=== PATIENT | female | born 1945 | race American Indian/Alaskan Native ===

== ENCOUNTER 2016-07-29 15:18 | Emergency (ER) | payer MEDICARE ==
[2016-07-29] MEDS ORDERED: TETRACAINE 0.5% OD STA (16:00)
[2016-07-29] MEDS ORDERED: ZOFRAN ODT PO ONE (16:00)
[2016-07-29] MEDS ORDERED: FUL-GLO OP ONE ×2 (16:00→20:57)
[2016-07-29] MEDS ORDERED: NORCO 5/325 PO ONE ×2 (16:00→20:33)
--- NOTE | 2016-07-29 16:03 | Emergency Department Report ---
Chief Complaint: Headache Stated Complaint: SHINGLES Time Seen by Provider: 07/29/16 16:00 - HPI History of Present Illness: PT c/o headache since Monday. PT dx with shingles this week at . PT went back today due to lack of improvement. PT sent to ED for further eval - ROS Review of Systems: + bliss + rash + eye pain - Exam Vital Signs: Vital Signs 07/29/16 15:45 Temperature 98.9 F Pulse Rate 88 Respiratory 22 Rate Blood Pressure 108/71 O2 Sat by Pulse 100 Oximetry Physical Exam: pt is alert and appropriate rash to R face R upper eye lid edematous and swollen MSE screening note: Focused history and physical exam performed. Due to findings the following was ordered: meds ED Disposition for MSE Condition: Stable
[2016-07-29 20:09] VITALS: BP 97/68
--- NOTE | 2016-07-29 20:51 | Emergency Department Report ---
HPI - General Chief Complaint: Headache Time Seen by Provider: 07/29/16 16:00 - HPI HPI: This is a 71-year-old Afro[place] female presents to the emergency department with complaint of a shingles rash to the right side of the scalp, head and face. She also has had some swelling and redness to the right eye with some right eye pain. She went to an urgent care on Monday and was placed on Valtrex 1 g twice a day 5 days, which she has been taking compliantly. She went back to the urgent care today because of the swelling and redness and lack of pain management and was referred to the emergency department for further evaluation. Patient has history of arthritis, remote breast cancer, hypertension. She does not have a primary care doctor. No recent travel or sick contacts at home. She has not taken anything else for her symptoms prior to presentation. ED Past Medical Hx - Past Medical History Hx Hypertension: Yes Hx of Cancer: Yes (breast x 2) Hx Arthritis: Yes - Surgical History Hx Breast Surgery: Yes (2013) Additional Surgical History: BILATERAL KNEE REPLACEMENT. HYSTERECTOMY - Social History Smoking Status: Never Smoker Substance Use Type: None - Medications Home Medications: Home Medications Medication Instructions Recorded Confirmed Last Taken Type HYDROcodone/APAP 5-325 [Spray 1 each PO Q6HR PRN #16 tablet 07/29/16 Unknown Rx 5/325] Ondansetron [Zofran Odt] 4 mg PO Q8HR PRN #10 tab.rapdis 07/29/16 Unknown Rx ED Review of Systems ROS: Stated complaint: SHINGLES Other details as noted in HPI Comment: All other systems reviewed and negative Constitutional: denies: chills, fever Eyes: eye pain. denies: eye discharge ENT: denies: ear pain, throat pain Respiratory: denies: cough, shortness of breath, wheezing Cardiovascular: denies: chest pain, palpitations Gastrointestinal: denies: abdominal pain, nausea, diarrhea Genitourinary: denies: urgency, dysuria, discharge Musculoskeletal: denies: back pain, joint swelling, arthralgia Skin: rash, lesions, pruritus Neurological: denies: weakness, numbness Physical Exam - Physical Exam Vital Signs: Vital Signs 07/29/16 07/29/16 07/29/16 15:45 16:08 20:08 Temperature 98.9 F Pulse Rate 88 75 Respiratory 22 18 16 Rate Blood Pressure 108/71 Blood Pressure 97/68 [Left] O2 Sat by Pulse 100 100 Oximetry Physical Exam: GENERAL: The patient is well-developed well-nourished. HEENT: Normocephalic. Atraumatic. Extraocular motions are intact and there is no pain with extraocular motion. Patient has moist mucous membranes. Pupils equal reactive to light bilaterally. There is no fluorescein uptake to the cornea. NECK: Supple. Trachea is midline. CHEST/LUNGS: Clear to auscultation. There is no respiratory distress noted. HEART/CARDIOVASCULAR: Regular. There is no tachycardia. There is no gallop rub or murmur. ABDOMEN: Abdomen is soft, nontender. Patient has normal bowel sounds. There is no abdominal distention. SKIN: Patient has a vesicular rash to the right side of the scalp and forehead as well as a small patch to the right cheek that appears consistent with herpes zoster. The patient has some mild swelling of the right upper and lower eyelids as well. NEURO: The patient is awake, alert, and oriented. The patient is cooperative. The patient has no focal neurologic deficits. The patient has normal speech. Cranial nerves II through XII grossly intact. MUSCULOSKELETAL: There is no tenderness or deformity. There is no limitation range of motion. There is no evidence of acute injury. ED Course Vital Signs 07/29/16 07/29/16 07/29/16 15:45 16:08 20:08 Temperature 98.9 F Pulse Rate 88 75 Respiratory 22 18 16 Rate Blood Pressure 108/71 Blood Pressure 97/68 [Left] O2 Sat by Pulse 100 100 Oximetry ED Medical Decision Making - Lab Data Result diagrams: 07/29/16 20:54 07/29/16 20:54 - Medical Decision Making This is a 71-year-old female presents the emergency department with newly diagnosed shingles and pain to the right side of the face and swelling around the right eye, consistent with sequela of the shingles. Vital signs have been stable throughout her ED course occluding being afebrile. The patient has trouble opening the eyes secondary to the swelling of the eyelid but when it is open she denies any vision change. She denies any pain to the eye itself. She had tetracaine and fluorescein staining and there was no uptake to the cornea showing any hyphae or pseudohyphae. Otherwise it does not appear to be any overlying secondary bacterial infections. There is no fever. She has no leukocytosis. The patient was able to tolerate Spray for pain. She will be given some pain medication and will continue to take her Valtrex as previously prescribed. She'll be given referrals for primary care and ophthalmology. She knows to return to the emergency department with any worsening of her symptoms or any acute distress. - Differential Diagnosis Shingles, cellulitis, conjunctivitis, dermatitis Critical Care Time: No Critical care attestation.: If time is entered above; I have spent that time in minutes in the direct care of this critically ill patient, excluding procedure time. ED Disposition Clinical Impression: Shingles rash Qualifiers: Herpes zoster complications: unspecified herpes zoster complication Qualified Code(s): B02.8 - Zoster with other complications Disposition: DISCHARGED TO HOME OR SELFCARE Is pt being admited?: No Condition: Stable Instructions: Herpes Zoster (ED) Additional Instructions: Please follow-up with a primary care doctor in the next few days. I have also given you a referral for a local assembly repairer, Dr. Morris, to follow up regarding her right eye. Return to the emergency department with any worsening of her symptoms or any acute distress. You've been prescribed a medication that is sedating. Therefore this medication cannot be mixed with alcohol, or taken prior to driving, working, or being responsible for children. Prescriptions: HYDROcodone/APAP 5-325 [Spray 5/325] 1 each PO Q6HR PRN #16 tablet PRN Reason: Pain Ondansetron [Zofran Odt] 4 mg PO Q8HR PRN #10 tab.rapdis PRN Reason: Nausea Referrals: PRIMARY ANGEL, [Primary Care Provider] - 3-5 Days PRICILLA MORRIS MD [Staff Physician] - 3-5 Days LINETTE GIBBS MD [Staff Physician] - 3-5 Days SHRUTHI LINARES MD [Staff Physician] - 3-5 Days [facility] [Outside] - 3-5 Days Time of Disposition: 21:30
[2016-07-29 21:11] LABS: Hematocrit 37.1 % (30.3-42.9); Hemoglobin 12.5 gm/dl (10.1-14.3); Mean Corpuscular HGB Conc 34 % (30-34); Mean Corpuscular Hemoglobin 30 pg (28-32); Mean Corpuscular Volume 90 fl (79-97); Platelet Count 197 K/mm3 (140-440); Red Blood Count 4.14 M/mm3 (3.65-5.03); Red Cell Distribution Width 14.9 % (13.2-15.2); White Blood Count 7.4 K/mm3 (4.5-11.0)
[2016-07-29 21:27] LABS: Blood Urea Nitrogen 17 mg/dL (7-17); Calcium 9.8 mg/dL (8.4-10.2); Carbon Dioxide 21 mmol/L (22-30); Glucose 101 mg/dL (65-100); Sodium 131 mmol/L (137-145)
[2016-07-29 21:28] LABS: Anion Gap 21 mmol/L; Chloride 93.6 mmol/L (98-107); Potassium 4.4 mmol/L (3.6-5.0)
[2016-07-29 22:24] LABS: Basophils % (Manual) 0 % (0.0-1.8); Blastocytes % (Manual) 0 %; Diff Status Complete; Platelet Estimate Consistent w Auto; RBC Morphology Normal
== END 2016-07-29 21:35 | disposition home or self-care (01) ==
LOC: ED 15:18
DX: B02.8 Zoster with other complications (principal); I10 Essential (primary) hypertension; C50.919 Malignant neoplasm of unspecified site of unspecified female breast; M19.90 Unspecified osteoarthritis, unspecified site; Z90.710 Acquired absence of both cervix and uterus; Z89.512 Acquired absence of left leg below knee; Z89.511 Acquired absence of right leg below knee; Z88.8 Allergy status to other drugs, medicaments and biological substances
CPT/HCPCS: 36415; 80048; 85007; 85025; Q0162

== ENCOUNTER 2021-01-15 09:09 | Emergency (ER) | payer MEDICARE ==
[2021-01-15] MEDS ORDERED: KETOROLAC 60 MG/2 ML INJ IM ONE (10:17)
--- NOTE | 2021-01-15 10:31 | Emergency Department Report ---
ED Female HPI - General Chief complaint: Urogenital-Female Stated complaint: STOMACH/BACK PAIN Time Seen by Provider: 01/15/21 10:14 Source: patient Mode of arrival: Ambulatory Limitations: No Limitations - History of Present Illness Initial comments: 75-year-old female with a past medical history of arthritis, hypertension, and hysterectomy presents to the hospital complaints of left lower quadrant pain radiating to the back worsening x1 week. Pain is constant, severe and currently rated 10/10 intensity. Pain is worse with palpation, movement, ambulation, and urination. Patient complains of dysuria with frequency. Patient denies hematuria, nausea, vomiting, history of kidney stones, or fever. - Related Data Previous Rx's Medication Instructions Recorded Last Taken Type HYDROcodone/APAP 5-325 [H[place] 1 each PO Q6HR PRN #16 tablet 07/29/16 Unknown Rx 5/325] Ondansetron [Zofran Odt] 4 mg PO Q8HR PRN #10 tab.rapdis 07/29/16 Unknown Rx HYDROcodone/APAP 5-325 [[place] 1 each PO Q6HR PRN #15 tablet 01/15/21 Unknown Rx 5/325] Ibuprofen [Motrin] 600 mg PO Q8H PRN #14 tablet 01/15/21 Unknown Rx Nitrofurantoin Edwards/M-Cryst 100 mg PO Q12HR #10 capsule 01/15/21 Unknown Rx [Macrobid CAP] Allergies Allergy/AdvReac Type Severity Reaction Status Date / Time oxycodone AdvReac Vomiting Verified 07/29/16 15:49 tramadol AdvReac Vomiting Verified 07/29/16 15:49 ED Review of Systems ROS: Stated complaint: STOMACH/BACK PAIN Other details as noted in HPI Comment: All other systems reviewed and negative ED Past Medical Hx - Past Medical History Hx Hypertension: Yes Hx Arthritis: Yes - Surgical History Hx Breast Surgery: Yes (2013) Additional Surgical History: BILATERAL KNEE REPLACEMENT. HYSTERECTOMY - Social History Smoking Status: Never Smoker Substance Use Type: None - Medications Home Medications: Home Medications Medication Instructions Recorded Confirmed Last Taken Type HYDROcodone/APAP 5-325 [[place] 1 each PO Q6HR PRN #16 tablet 07/29/16 Unknown Rx 5/325] Ondansetron [Zofran Odt] 4 mg PO Q8HR PRN #10 tab.rapdis 07/29/16 Unknown Rx HYDROcodone/APAP 5-325 [[place] 1 each PO Q6HR PRN #15 tablet 01/15/21 Unknown Rx 5/325] Ibuprofen [Motrin] 600 mg PO Q8H PRN #14 tablet 01/15/21 Unknown Rx Nitrofurantoin Edwards/M-Cryst 100 mg PO Q12HR #10 capsule 01/15/21 Unknown Rx [Macrobid CAP] ED Physical Exam - General Limitations: No Limitations - Other Other exam information: General: No acute distress Head: Atraumatic Eyes: normal appearance ENT: Moist mucous membranes Neck: Normal appearance, no midline tenderness Chest: Clear to auscultation bilaterally CV: Regular rate and rhythm Abdomen: Soft, normal bowel sounds, left lower quadrant tenderness, nondistended, no rebound or guarding Back: Normal inspection, left flank and lower back tenderness to palpation Extremity: Normal inspection, full range of motion Neuro: Alert O x 3, no facial asymmetry, speech clear, no gross motor sensory deficit Psych: Appropriate behavior Skin: No rash ED Course Vital Signs 01/15/21 09:16 Temperature 98.4 F Pulse Rate 83 Respiratory 16 Rate Blood Pressure 140/73 [Left] O2 Sat by Pulse 96 Oximetry ED Medical Decision Making - Lab Data Result diagrams: 01/15/21 10:10 01/15/21 10:10 Lab Results 01/15/21 01/15/21 01/15/21 Range/Units 10:10 10:10 Unknown WBC 4.1 L (4.5-11.0) K/mm3 RBC 4.08 (3.65-5.03) M/mm3 Hgb 13.1 (10.1-14.3) gm/dl Hct 38.3 (30.3-42.9) % MCV 94 (79-97) fl MCH 32 (28-32) pg MCHC 34 (30-34) % RDW 14.3 (13.2-15.2) % Plt Count 214 (140-440) K/mm3 Lymph % (Auto) 43.0 H (13.4-35.0) % Edwards % (Auto) 11.5 H (0.0-7.3) % Eos % (Auto) 1.3 (0.0-4.3) % Baso % (Auto) 0.8 (0.0-1.8) % Lymph # (Auto) 1.8 (1.2-5.4) K/mm3 Edwards # (Auto) 0.5 (0.0-0.8) K/mm3 Eos # (Auto) 0.1 (0.0-0.4) K/mm3 Baso # (Auto) 0.0 (0.0-0.1) K/mm3 Seg Neutrophils % 43.4 (40.0-70.0) % Seg Neutrophils # 1.8 (1.8-7.7) K/mm3 Sodium 141 (137-145) mmol/L Potassium 5.3 H (3.6-5.0) mmol/L Chloride 105.6 (98-107) mmol/L Carbon Dioxide 24 (22-30) mmol/L Anion Gap 17 mmol/L BUN 14 (7-17) mg/dL Creatinine 0.7 (0.6-1.2) mg/dL Estimated GFR > 60 ml/min BUN/Creatinine Ratio 20 % Glucose 100 (65-100) mg/dL Calcium 10.2 (8.4-10.2) mg/dL Total Bilirubin 0.30 (0.1-1.2) mg/dL AST 20 (5-40) units/L ALT 14 (7-56) units/L Alkaline Phosphatase 104 (35-129) units/L Total Protein 7.4 (6.3-8.2) g/dL Albumin 4.2 (3.9-5) g/dL Albumin/Globulin Ratio 1.3 % Urine Color Yellow (Yellow) Urine Turbidity Clear (Clear) Urine pH 6.0 (5.0-7.0) Ur Specific Keller 1.016 (1.003-1.030) Urine Protein <15 mg/dl (Negative) mg/dL Urine Glucose (UA) Neg (Negative) mg/dL Urine Ketones Neg (Negative) mg/dL Urine Blood Neg (Negative) Urine Nitrite Neg (Negative) Urine Bilirubin Neg (Negative) Urine Urobilinogen < 2.0 (<2.0) mg/dL Ur Leukocyte Esterase Tr (Negative) Urine WBC (Auto) 6.0 (0.0-6.0) /HPF Urine RBC (Auto) 3.0 (0.0-6.0) /HPF U Epithel Cells (Auto) 13.0 (0-13.0) /HPF Urine Mucus Few /HPF - Radiology Data Radiology results: report reviewed CT OF THE ABDOMEN AND PELVIS WITHOUT CONTRAST INDICATION / CLINICAL INFORMATION: Left flank pain. TECHNIQUE: All CT scans at this location are performed using CT dose reduction for ALARA by means of automated exposure control. COMPARISON: None available. FINDINGS: ABDOMEN: There is a 5.4 cm simple cyst-appearing lesion in the left mid kidney posteriorly. There is no evidence of renal calculus, hydronephrosis or perinephric soft tissue stranding. There are small calcified stones in the gallbladder. The gallbladder is normal in size without wall thickening or bile duct dilatation. The liver, spleen, pancreas and adrenal glands demonstrate no significant abnormality. There are moderate atherosclerotic calcifications involving the abdominal aorta and its branches without aneurysm. No adenopathy is seen. There is a small hiatal hernia. I see no evidence of bowel obstruction, wall thickening or free air. The lung bases are clear. PELVIS: The distal ureters and urinary bladder are normal. The uterus is not identified. There is no evidence of adnexal mass or free fluid. I see no evidence of appendicitis. There are multiple scattered diverticula throughout the left colon without acute inflammation. I do not identify a hernia. There is mild spondylosis. IMPRESSION: 1. No acute abnormality is identified. There is no evidence of urinary tract calculus or hydronephrosis. 2. Diverticulosis without CT evidence of acute diverticulitis. 3. Cholelithiasis. - Medical Decision Making Patient symptoms improved with Toradol. ED work-up does not reveal cause of pain however, patient does have urinary symptoms of left lower quadrant and back pain. No signs of hydronephrosis, renal stones, diverticulosis identified on CT. Patient also lacks findings of significant UTI on UA however, given symptoms patient will be treated with pain medication and antibiotics for UTI. Given strict instructions to return if symptoms worsen Critical Care Time: No Critical care attestation.: If time is entered above; I have spent that time in minutes in the direct care of this critically ill patient, excluding procedure time. ED Disposition Clinical Impression: Left flank pain, Dysuria Disposition: 02 [facility] Is pt being admited?: No Does the pt Need Aspirin: No Condition: Stable Instructions: Dysuria, Flank Pain, Adult, [id number] Additional Instructions: Take the medication as prescribed. Follow-up with your doctor or doctor/clinic provided. Return if symptoms worsen as indicated by your discharge instru ctions. Prescriptions: Nitrofurantoin Edwards/M-Cryst [Macrobid CAP] 100 mg PO Q12HR #10 capsule Ibuprofen [Motrin] 600 mg PO Q8H PRN #14 tablet PRN Reason: Pain HYDROcodone/APAP 5-325 [[place] 5/325] 1 each PO Q6HR PRN #15 tablet PRN Reason: Pain Referrals: CHRISTA RHODES [Other] - 3-5 Days Time of Disposition: 12:41
[2021-01-15 10:42] LABS: Basophils % (Auto) 0.8 % (0.0-1.8); Eosinophils # (Auto) 0.1 K/mm3 (0.0-0.4); Eosinophils % (Auto) 1.3 % (0.0-4.3); Hematocrit 38.3 % (30.3-42.9); Hemoglobin 13.1 gm/dl (10.1-14.3); Lymphocytes # (Auto) 1.8 K/mm3 (1.2-5.4); Mean Corpuscular HGB Conc 34 % (30-34); Mean Corpuscular Volume 94 fl (79-97); Monocytes # (Auto) 0.5 K/mm3 (0.0-0.8); Monocytes % (Auto) 11.5 % (0.0-7.3); Platelet Count 214 K/mm3 (140-440); Red Blood Count 4.08 M/mm3 (3.65-5.03); Red Cell Distribution Width 14.3 % (13.2-15.2)
[2021-01-15 11:01] LABS: Alanine Aminotransferase 14 units/L (7-56); Albumin 4.2 g/dL (3.9-5); Blood Urea Nitrogen 14 mg/dL (7-17); Calcium 10.2 mg/dL (8.4-10.2); Hemolysis Index 19
--- NOTE | 2021-01-15 11:03 | Cat Scan Report ---
CT OF THE ABDOMEN AND PELVIS WITHOUT CONTRAST INDICATION / CLINICAL INFORMATION: Left flank pain. TECHNIQUE: All CT scans at this location are performed using CT dose reduction for ALARA by means of automated exposure control. COMPARISON: None available. FINDINGS: ABDOMEN: There is a 5.4 cm simple cyst-appearing lesion in the left mid kidney posteriorly. There is no evidence of renal calculus, hydronephrosis or perinephric soft tissue stranding. There are small c alcified stones in the gallbladder. The gallbladder is normal in size without wall thickening or bile duct dilatation. The liver, spleen, pancreas and adrenal glands demonstrate no significant abnormality. There are mode rate atherosclerotic calcifications involving the abdominal aorta and its branches without aneurysm. No adenopathy is seen. There is a small hiatal hernia. I see no evidence of bowel obstruction, wall t hickening or free air. The lung bases are clear. PELVIS: The distal ureters and urinary bladder are normal. The uterus is not identified. There is no evidence of adnexal mass or free fluid. I see no evidence of appendicitis. There are multiple scatter ed diverticula throughout the left colon without acute inflammation. I do not identify a hernia. Ther e is mild spondylosis. IMPRESSION: 1. No acute abnormality is identified. There is no evidence of urinary tract calculus or hydronephros is. 2. Diverticulosis without CT evidence of acute diverticulitis. 3. Cholelithiasis. Signer Name: Randal Patino MD Signed: 01/15/2021 10:59 AM Workstation Name: [id number]
[2021-01-15 11:11] LABS: BUN/Creatinine Ratio 20
[2021-01-15 11:24] LABS: Bilirubin,Urine NEG (Negative); Blood,Urine NEG (Negative); Color,Urine Yellow (Yellow); Mucus,Urine FEW /HPF; Protein,Urine <15 mg/dL mg/dL (Negative); Urobilinogen,Urine < 2.0 mg/dL (<2.0)
[2021-01-15 13:29] VITALS: BP 147/77
== END 2021-01-15 13:28 | disposition short-term general hospital (02) ==
LOC: ED 09:09
DX: R10.32 Left lower quadrant pain (principal); R30.0 Dysuria
CPT/HCPCS: 36415; 74176; 80053; 81001; 85025; 96372; 99284; J1885